=== PATIENT | male | born 1995 | race Two or more races ===

== ENCOUNTER 2024-02-02 22:06 | Emergency (ER) | payer SELFPAY ==
[~2024-02-02] VITALS: Ht 182.9 cm; Wt 87.0 kg
[2024-02-02 22:54] VITALS: TEMP 98.3; O2SAT 100
[2024-02-02] MEDS ORDERED: KETOROLAC 15MG/ML VIAL IM ONE (23:30)
[2024-02-02] MEDS ORDERED: TETANUS, DIPHTHERIA, PERTUSSIS VAC/PF 0.5ML (>10YR OLD) IM ONE (23:30)
[2024-02-02] MEDS ORDERED: BACITRACIN ZINC OINT UDPKT TOP ONE (23:30)
[2024-02-02] MEDS ORDERED: LIDOCAINE HCL/PF 1% 10 MG/ML 5ML VIAL INFIL ONE (23:30)
[2024-02-03 00:15] VITALS: BP 121/69; PULSE 70
[2024-02-03] MEDS: BACITRACIN ZINC OINT UDPKT TOP NR (00:15)
[2024-02-03] MEDS: KETOROLAC 15MG/ML VIAL IM NR (00:15)
[2024-02-03] MEDS: LIDOCAINE HCL/PF 1% 10 MG/ML 5ML VIAL INFIL NR (00:15)
[2024-02-03 00:30] VITALS: RESP 17
[2024-02-03] MEDS ORDERED: NAPR-1176 MT (01:02)
[2024-02-03] MEDS: TETANUS, DIPHTHERIA, PERTUSSIS VAC/PF 0.5ML (>10YR OLD) IM ONE (01:30)
== END 2024-02-03 01:17 | disposition home or self-care (01) ==
LOC: ER 22:06
DX: S62.632A Displaced fracture of distal phalanx of right middle finger, initial encounter for closed fracture (principal); X58.XXXA Exposure to other specified factors, initial encounter; Y93.89 Activity, other specified; Y92.89 Other specified places as the place of occurrence of the external cause; Y99.8 Other external cause status
CPT/HCPCS: 99284; 73130; 29130; 90715; 90471; 96372; J1885; J3490